=== PATIENT | female | born 1960 | race Caucasian/White ===

== ENCOUNTER → 2018-03-28 | Outpatient (CLI) | payer BC ==
[~2018-03-28] MED LIST: CELEXA; SINGULAIR; VERAPAMIL
== END ==
LOC: MC.RAD 08:32
DX: Z12.31 Encounter for screening mammogram for malignant neoplasm of breast (principal)

== ENCOUNTER → 2020-11-17 | Outpatient (CLI) | payer BC | LOC: MC.RAD 12:48 | DX: Z12.31 Encounter for screening mammogram for malignant neoplasm of breast (principal) ==

== ENCOUNTER → 2021-11-22 | Outpatient (CLI) | payer BC | LOC: COL.RAD 06:57 | DX: R51.9 Headache, unspecified (principal); Z98.49 Cataract extraction status, unspecified eye; Z96.1 Presence of intraocular lens ==

== ENCOUNTER → 2023-11-20 | Outpatient (CLI) | payer BC | LOC: COL.RAD 08:58 | DX: M79.651 Pain in right thigh (principal) ==